=== PATIENT | male | born 1985 | race Two or more races ===

== ENCOUNTER 2019-12-03 18:08 | Emergency (ER) | payer SELFPAY ==
[2019-12-03] MEDS ORDERED: FAMOTIDINE INJ/PF 20 MG/2 ML SDV IV ONE (18:24)
[2019-12-03] MEDS ORDERED: DIPHENHYDRAMINE HCL 50 MG/ML VIAL IV ONE (18:25)
[2019-12-03] MEDS ORDERED: METHYLPREDNISOLONE INJ 125 MG/2 ML SDV IV ONE (18:26)
--- NOTE | 2019-12-03 18:29 | ER Document Report ---
ED Medical Screen (RME) - General Chief Complaint: Allergic Reaction Stated Complaint: POSSIBLE INSECT BITES Time Seen by Provider: 12/03/19 18:21 Notes: This is a 34-year-old male who presented to the emergency room today stating that he was stung by a few bees. He does not know that he has been allergic to them in the past he was stung by a bee a long time ago although looked differently he is very red has a rash feels like he started to have trouble breathing. Should be noted the patient does smell like alcohol as well Past Medical History - Social History Chew tobacco use (# tins/day): No Frequency of alcohol use: Occasional Drug Abuse: None Physical Exam - Vital signs Vitals: Temp Pulse Resp BP Pulse Ox 98.8 F 87 16 126/75 H 97 12/03/19 18:14 12/03/19 18:14 12/03/19 18:14 12/03/19 18:14 12/03/19 18:14 Course - Vital Signs Vital signs: Temp Pulse Resp BP Pulse Ox 98.8 F 87 16 126/75 H 97 12/03/19 18:19 12/03/19 18:14 12/03/19 18:14 12/03/19 18:14 12/03/19 18:14
--- NOTE | 2019-12-03 19:17 | ER Document Report ---
HPI - HPI Patient complains to provider of: Drug reaction Time Seen by Provider: 12/03/19 18:21 Onset: Just prior to arrival Onset/Duration: Sudden Pain Level: 4 Context: This is a 34-year-old male presented emergency room today after being stung by several bees he did not know that he was allergic to bees however he did in fact have an allergic reaction to the sting and stated that he had a little bit of shortness of breath or on arrival. Associated Symptoms: None Exacerbated by: Denies Similar symptoms previously: No - CONSTITUTIONAL Constitutional: DENIES: Fever, Chills - CARDIOVASCULAR Cardiovascular: DENIES: Chest pain - RESPIRATORY Respiratory: REPORTS: Trouble Breathing Past Medical History - General Information source: Patient - Social History Smoking Status: Current Some Day Smoker Chew tobacco use (# tins/day): No Frequency of alcohol use: Occasional Drug Abuse: None Family History: None Vertical Provider Document - CONSTITUTIONAL Agree With Documented VS: Yes - HEENT HEENT: Atraumatic, Conjuctival Injection, Normocephalic, PERRLA - NECK Neck: Normal Inspection, Supple - RESPIRATORY Respiratory: Breath Sounds Normal, No Respiratory Distress. negative: Rhonchi, Wheezing - CARDIOVASCULAR Cardiovascular: Regular Rate, Regular Rhythm - GI/ABDOMEN Gastrointestinal: Abdomen Soft, Abdomen Non-Tender - MUSCULOSKELETAL/EXTREMETIES Musculoskeletal/Extremeties: MAEW - NEURO Level of Consciousness: Awake, Alert, Appropriate Motor/Sensory: No Motor Deficit, No Sensory Deficit - DERM Integumentary: Warm Notes: Patient still has a very scant rash although that is much dissipated from his original condition upon arrival which I observed in triage. Course - Re-evaluation Re-evalutation: 12/03/19 19:14 I did see him in triage and did a separate screening note at that point in time I had provided him with some Solu-Medrol some Pepcid and some Benadryl he is actually feeling much better at this point in time I came in the redness is resolved he no longer has any sensation of near swelling to his throat he did not have complete swelling and he states that that is completely subsided he is feeling better and the rash is dissipating. This point of time will be discharging him to follow-up with his PMD he will be placed on steroids Pepcid and Benadryl I will also provide him with a prescription for an EpiPen. - Vital Signs Vital signs: Temp Pulse Resp BP Pulse Ox 98.8 F 87 16 126/75 H 97 12/03/19 18:19 12/03/19 18:14 12/03/19 18:14 12/03/19 18:14 12/03/19 18:14 Discharge - Discharge Clinical Impression: Allergic reaction Qualifiers: Encounter type: initial encounter Qualified Code(s): T78.40XA - Allergy, unspecified, initial encounter Disposition: HOME, SELF-CARE Instructions: Acute Allergic Reaction ([facility]) Prescriptions: Diphenhydramine HCl [Benadryl 25 mg Capsule] 25 mg PO Q6 PRN #25 capsule PRN Reason: Prednisone [Deltasone 20 mg Tablet] 3 tab PO DAILY 5 Days tablet Epinephrine [Epipen] 0.3 mg IJ ASDIR PRN #1 auto.injct PRN Reason: Famotidine [Pepcid] 20 mg PO QAM #30 tablet
[2019-12-03 19:36] VITALS: BP 135/99
== END 2019-12-03 19:37 | disposition home or self-care (01) ==
LOC: ER 18:08
DX: T63.441A Toxic effect of venom of bees, accidental (unintentional), initial encounter (principal); R06.02 Shortness of breath; R21 Rash and other nonspecific skin eruption; Y93.89 Activity, other specified; Y92.009 Unspecified place in unspecified non-institutional (private) residence as the place of occurrence of the external cause; F17.200 Nicotine dependence, unspecified, uncomplicated
CPT/HCPCS: 99281; 96374; 96375; J1200; J2930; S0028